=== PATIENT | female | born 1985 | race African-American/Black ===

== ENCOUNTER 2021-11-21 15:41 | Inpatient (IN) | payer SELFPAY ==
[2021-11-21] VITALS (8 sets, daily range): BP systolic 109–121; BP diastolic 71–83; PULSE 59–64; RESP 16–18; TEMP 36.4–36.7; O2SAT 96–100; BMI 27.3
--- NOTE | 2021-11-21 17:35 | ED_ITS ---
HPI - Abdominal Pain General Time Seen by Provider: 17:35 Date Seen: 11/21/21 Chief Complaint: Abdominal Pain Stated Complaint: Right Abdominal Pain Time Seen by Provider: 11/21/21 17:35 Source: patient and RN notes reviewed Mode of arrival: ambulatory Limitations: no limitations History of Present Illness HPI narrative: This patient is a 35-year-old female that started to experience onset of right- sided chest wall pain. She states it hurts with turning, hurts with breathing. She originally reported that this was abdominal pain but she clearly points to her right lower chest wall where she is feeling this. She was on her way to work and thought maybe she just turned wrong. She has noted some increased bowel movements, some of them diarrheal at times recently. She thought maybe she might have C difficile given that she works at [employer]. She has had no cough or cold symptoms, has no shortness of breath. No palpitations. She does not think she is , did take our recent home test that was negative. Denies any trauma to the chest wall. She has never had anything like this before. No fevers or chills. She has never been told that she has sickle cell. Related Data Patient : No Home Medications Medication Instructions Recorded Confirmed No Known Home Medications 11/21/21 11/21/21 Allergies Allergy/AdvReac Type Severity Reaction Status Date / Time oxycodone Allergy Verified 11/21/21 16:03 Review of Systems Status of ROS Reports: 10 or more systems reviewed and unremarkable except as noted in History and below PFSH PFSH Social History Smoking Status: Never smoker Do you use any of these nicotine containing products: None Second hand tobacco smoke exposure: Yes How often do you have a drink containing alcohol: never How often do you have six or more drinks on one occasion: Never AUDIT-C Alcohol total score: 0 Non-prescribed substance use: over the counter (eg: immodium) Non-prescribed substance use details: tylenol service: No Exam Const: Vital Signs, click to edit/add: Vital Signs - 24 hr 11/21/21 16:03 11/21/21 18:38 Temperature 97.5 F L Pulse Rate [Right Pulse Oximeter] 63 59 L Respiratory Rate 18 18 Blood Pressure [Le ft Forearm] 109/83 Blood Pressure [Ri ght Upper Arm] 109/78 Pulse Oximetry 100 99 Documenting provider has reviewed patient's vital signs: yes Common normals: no apparent distress, average body habitus, oriented x3, no limitations, healthy appearing, alert and well nourished General appearance: cooperative, comfortable and well ket HENMT: Common normals: normocephalic, head/scalp atraumatic, hearing grossly normal bilaterally, external ears normal, external nose normal, nasal mucous membranes and turbinates normal, moist oral mucous membranes, oropharynx normal and dentition normal Head and scalp: normocephalic and atraumatic Nose: external nose normal and nasal mucous membranes and turbinates normal External ear: external ears normal Eye: Common normals: PERRL, EOMs intact bilaterally, conjunctivae normal and no scleral icterus Conjunctiva: conjunctiva(e) normal Pupil: PERRL Neck & C-Spine: Common normals: full ROM, no lymphadenopathy, supple, no meningeal signs, no JVD and thyroid normal Thyroid: thyroid normal Chest: Common normals: inspection of chest normal Other: Does complain of pain when I palpate along the lower chest wall and ribs on the right side, no visible rash. Resp: Common normals: normal respiratory effort, no retractions, no use of accessory muscles and clear to auscultation bilaterally (She does complain of pain in the right side with deep breathing) Auscultation: clear to auscultation bilaterally (She does complain of pain in the right side with deep breathing) Cardio: Common normals: no JVD, regular rate, regular rhythm, S1 normal heart sound, S2 normal heart sound, no gallops, no clicks and no murmurs Rate: regular rate Rhythm: regular rhythm Heart sounds: S1 normal and S2 normal GI: Common normals: Normal to inspection, nondistended, normoactive bowel sounds present, soft to palpation, non-tender, no hepatosplenomegaly and no masses Palpation: soft and no hepatosplenomegaly Extremity: Common normals: normal to inspection, full ROM, normal capillary refill, no joint enlargement, no clubbing, cyanosis or edema, no calf tenderness and no pedal edema Neuro: Common normals: oriented x3 Sensorium/orientation: alert Meningeal signs: no meningeal signs Speech: speech normal Gait (neuro): normal gait Psych: Appearance: well kempt Course Course Hospital Course: We will obtain a chest x-ray, EKG in full complement of labs. She will be monitored on pulse oximetry while here. This seems to be consistent with pleurisy and some chest wall tenderness. Cardiac, musculoskeletal, GI much less likely. There is no noted trauma. We will give her dose of Toradol and see if that does help her symptoms. Reevaluation(s) Reevaluation #1: Did review with patient that her troponin is elevated. Did subsequently order an EKG which is not showing any evidence of any pericarditis or ST segment changes indicative of ischemia or infarction. Will be doing the PE protocol. Will subsequently do a followup troponin as well. I am also ordering a COVID. I have no reasonable explanation at this time other than possibly pulmonary embolus with strain, non STEMI, myocarditis. May ultimately need to talk to Cardiology. Time: 19:27 Reevaluation #2: Dr. Tom did kindly do a bedside ultrasound quickly. There does not appear to be a pericardial effusion at this time, normal gross function. We will be contacting Cardiology and the patient is aware. Note we did get a troponin here in the ER that was point of care that was 0.00. I had laboratory run our initial troponin on arrival and they had a repeat value of 0.239 which is centrally consistent with the initial result. We did do dry which I will have lab add in believe it was around 820 and they did get 0.243. Thus I think our point of care is erroneously. Time: 21:53 Consultations Consultation #1: Spoke with Dr. Her moreno from Cardiology at 9:46 p.m.. He agrees that this patient should be admitted overnight, echo tomorrow. He states they sometimes see these patients have parapneumonic or pericardial changes with pneumonia. He would recommend NSAIDs or colchicine. I reviewed with him that I had given her Toradol which he thought was perfect. I have subsequently talked to Dr. Rocha who agrees with management and will be assuming care. He would like Rocephin and oral antibiotics such as azithromycin. I have ordered 2 g IV Rocephin and 500 mg oral azithromycin for her. Time: 21:56 Vital Signs Vital signs: Initial Vital Signs Temperature 97.5 F L 11/21/21 16:03 Temperature Source Temporal Artery Scan 11/21/21 16:03 Pulse Rate 63 11/21/21 16:03 Respiratory Rate 18 11/21/21 16:03 Blood Pressure 109/78 11/21/21 16:03 Blood Pressure Mean 88 11/21/21 16:03 Blood Pressure Position Sitting 11/21/21 16:03 Pulse Oximetry 100 11/21/21 16:03 Oxygen Delivery Method 11/21/21 16:03 Vital Signs Temperature 97.5 F L 11/21/21 16:03 Pulse Rate 63 11/21/21 16:03 Respiratory Rate 18 11/21/21 16:03 Blood Pressure 109/78 11/21/21 16:03 Pulse Oximetry 100 11/21/21 16:03 Temperature 97.5 F L 11/21/21 16:03 Pulse Rate 59 L 11/21/21 18:38 Respiratory Rate 18 11/21/21 18:38 Blood Pressure 109/83 11/21/21 18:38 Pulse Oximetry 99 11/21/21 18:38 MDM - Abdominal Pain Lab Data Attestation: I reviewed the patient's lab results. Labs: Lab Results 11/21/21 11/21/21 11/21/21 Range/Units 17:42 18:20 18:20 WBC 5.80 (4.50-11.00) K/uL RBC 4.87 (4.00-5.20) m/uL Hgb 11.7 L (12.0-16.0) gm/dL Hct 38.0 (33.0-51.0) % MCV 78 L (80-100) fL MCH 24 L (26-34) pg MCHC 31 L (32-36) gm/dL RDW Coeff of Freddy 17.0 H (11.5-15.5) % Plt Count 375 (140-440) K/uL Neut % (Auto) 52.0 (42.0-72.0) % Lymph % (Auto) 39.7 (20-44) % Ashe % (Auto) 6.2 (0.0-11.0) % Eos % (Auto) 1.2 (0.0-7.0) % Baso % (Auto) 0.9 (0.0-3.0) % Neut # (Auto) 3.02 (1.7-7.0) K/uL Lymph # (Auto) 2.30 (0.90-2.90) K/uL Ashe # (Auto) 0.40 (0.00-0.90) K/UL Eos # (Auto) 0.07 (0.00-0.50) K/uL Baso # (Auto) 0.05 (0.00-0.30) K/uL Abs Immat Gran (auto) 0.00 (0.00-0.30) K/uL ESR (2-20) mm/hr Sodium (135-149) mmol/L Potassium (3.6-5.1) mmol/L Chloride (96-114) mmol/L Carbon Dioxide (20-32) mmol/L BUN (5-24) mg/dL Creatinine (0.5-1.5) mg/dL Estimated Creat Clear Estimated GFR ml/min Glucose (60-115) mg/dL Calcium (8.4-10.6) mg/dL Total Bilirubin (0.1-1.5) mg/dL AST (12-35) U/L ALT (4-35) U/L Alkaline Phosphatase (40-150) U/L Troponin I (0.01-0.04) ng/mL C-Reactive Protein (0.5-1.0) mg/dL Total Protein (6.0-8.3) g/dL Albumin (3.3-5.0) g/dL HCG, Qual Negative (Negative) Urine Color Yellow (Yellow) Urine Appearance Cloudy A (Clear) Urine pH 5.5 (5.0-8.5) Ur Specific Chester 1.010 (1.000-1.030) Urine Protein Negative (Negative) Urine Glucose (UA) Negative (Negative) Urine Ketones Negative (Negative) Urine Blood Negative (Negative) Urine Nitrite Negative (Negative) Urine Bilirubin Negative (Negative) Urine Urobilinogen 0.2 (0.2-1.0) Ur Leukocyte Esterase 2+ A (Negative) Urine RBC 0-2 (0-2) Urine WBC 5-10 A (0-5) Ur Squamous Epith Cells Moderate A (None-Few) Urine Bacteria Few A (None) SARS-CoV-2 (PCR) (Negative) POC Troponin I (0.01-0.04) ng/ml 11/21/21 11/21/21 11/21/21 Range/Units 18:20 18:20 19:17 WBC (4.50-11.00) K/uL RBC (4.00-5.20) m/uL Hgb (12.0-16.0) gm/dL Hct (33.0-51.0) % MCV (80-100) fL MCH (26-34) pg MCHC (32-36) gm/dL RDW Coeff of Freddy (11.5-15.5) % Plt Count (140-440) K/uL Neut % (Auto) (42.0-72.0) % Lymph % (Auto) (20-44) % Ashe % (Auto) (0.0-11.0) % Eos % (Auto) (0.0-7.0) % Baso % (Auto) (0.0-3.0) % Neut # (Auto) (1.7-7.0) K/uL Lymph # (Auto) (0.90-2.90) K/uL Ashe # (Auto) (0.00-0.90) K/UL Eos # (Auto) (0.00-0.50) K/uL Baso # (Auto) (0.00-0.30) K/uL Abs Immat Gran (auto) (0.00-0.30) K/uL ESR 11 (2-20) mm/hr Sodium 138 (135-149) mmol/L Potassium 4.0 (3.6-5.1) mmol/L Chloride 104 (96-114) mmol/L Carbon Dioxide 25 (20-32) mmol/L BUN 8 (5-24) mg/dL Creatinine 0.7 (0.5-1.5) mg/dL Estimated Creat Clear 123.61 Estimated GFR 117 ml/min Glucose 101 (60-115) mg/dL Calcium 9.7 (8.4-10.6) mg/dL Total Bilirubin 0.4 (0.1-1.5) mg/dL AST 30 (12-35) U/L ALT 25 (4-35) U/L Alkaline Phosphatase 84 (40-150) U/L Troponin I 0.23 H* (0.01-0.04) ng/mL C-Reactive Protein 0.6 (0.5-1.0) mg/dL Total Protein 8.3 (6.0-8.3) g/dL Albumin 4.7 (3.3-5.0) g/dL HCG, Qual (Negative) Urine Color (Yellow) Urine Appearance (Clear) Urine pH (5.0-8.5) Ur Specific Chester (1.000-1.030) Urine Protein (Negative) Urine Glucose (UA) (Negative) Urine Ketones (Negative) Urine Blood (Negative) Urine Nitrite (Negative) Urine Bilirubin (Negative) Urine Urobilinogen (0.2-1.0) Ur Leukocyte Esterase (Negative) Urine RBC (0-2) Urine WBC (0-5) Ur Squamous Epith Cells (None-Few) Urine Bacteria (None) SARS-CoV-2 (PCR) Negative SARS-CoV-2 (Negative) POC Troponin I (0.01-0.04) ng/ml 11/21/21 11/21/21 Range/Units 20:08 20:08 WBC (4.50-11.00) K/uL RBC (4.00-5.20) m/uL Hgb (12.0-16.0) gm/dL Hct (33.0-51.0) % MCV (80-100) fL MCH (26-34) pg MCHC (32-36) gm/dL RDW Coeff of Freddy (11.5-15.5) % Plt Count (140-440) K/uL Neut % (Auto) (42.0-72.0) % Lymph % (Auto) (20-44) % Ashe % (Auto) (0.0-11.0) % Eos % (Auto) (0.0-7.0) % Baso % (Auto) (0.0-3.0) % Neut # (Auto) (1.7-7.0) K/uL Lymph # (Auto) (0.90-2.90) K/uL Ashe # (Auto) (0.00-0.90) K/UL Eos # (Auto) (0.00-0.50) K/uL Baso # (Auto) (0.00-0.30) K/uL Abs Immat Gran (auto) (0.00-0.30) K/uL ESR (2-20) mm/hr Sodium (135-149) mmol/L Potassium (3.6-5.1) mmol/L Chloride (96-114) mmol/L Carbon Dioxide (20-32) mmol/L BUN (5-24) mg/dL Creatinine (0.5-1.5) mg/dL Estimated Creat Clear Estimated GFR ml/min Glucose (60-115) mg/dL Calcium (8.4-10.6) mg/dL Total Bilirubin (0.1-1.5) mg/dL AST (12-35) U/L ALT (4-35) U/L Alkaline Phosphatase (40-150) U/L Troponin I 0.24 H* (0.01-0.04) ng/mL C-Reactive Protein (0.5-1.0) mg/dL Total Protein (6.0-8.3) g/dL Albumin (3.3-5.0) g/dL HCG, Qual (Negative) Urine Color (Yellow) Urine Appearance (Clear) Urine pH (5.0-8.5) Ur Specific Chester (1.000-1.030) Urine Protein (Negative) Urine Glucose (UA) (Negative) Urine Ketones (Negative) Urine Blood (Negative) Urine Nitrite (Negative) Urine Bilirubin (Negative) Urine Urobilinogen (0.2-1.0) Ur Leukocyte Esterase (Negative) Urine RBC (0-2) Urine WBC (0-5) Ur Squamous Epith Cells (None-Few) Urine Bacteria (None) SARS-CoV-2 (PCR) (Negative) POC Troponin I 0.00 L (0.01-0.04) ng/ml Imaging Data Chest x-ray: My impression: My preliminary review of this portable chest x-ray is without acute cardiopulmonary abnormality, await Radiology over-read. CT scan - chest: Attestation: I have reviewed the pertinent imaging results. Radiologist's impression: Patient: VENANCIO PAYNE Facility:?[facility] Patient ID:?[id number] Site Patient ID:?[id number]. Site :?[id number] Study:?CT Chest Angio W/95CC ISOVUE 370 PE PROTOCOL-11/21/2021 7:56:48 PM Ordering Physician:Alice Zhao Final Report: INDICATION: ELEVATED TROPONIN, RIGHT SIDED CHEST PAIN CT CHEST WITH CONTRAST TECHNIQUE: Multidetector CT imaging was performed through the chest following intravenous contrast administration using 95 mL Isovue 370. Coronal and sagittal reconstructions were generated. COMPARISON: None. FINDINGS: Lungs and airways: Right-sided perihilar bronchial wall thickening, most marked involving the bronchi extending into the right middle lobe and right lower lobe, most likely representing bronchitis. Associated stranding in volume loss in the right middle lobe and right lower lobe consistent with atelectasis, as well as scattered small opacities which could represent pneumonia. Additional minimal small opacities in the right upper lobe and left upper lobe could represent additional pneumonia. Pleura and pleural spaces: No pleural effusions or pneumothorax. Heart and mediastinum: Normal heart size. No significant pericardial effusion. No pathologically enlarged mediastinal lymph nodes. Vascular structures: No filling defects in the pulmonary arterial tree to suggest pulmonary emboli. Normal caliber thoracic aorta. Chest wall and axillae: No mass or axillary lymphadenopathy. Osseous structures: Normal for age. No acute fractures identified. Upper abdomen: Unremarkable. IMPRESSION: 1. Right perihilar bronchial wall thickening, most marked at the right middle lobe and right lower lobe, likely representing bronchitis. Associated mild atelectasis. 2. Small patchy opacities in the right middle lobe and right lower lobe potentially represent pneumonia. Question of additional minimal pneumonia in the right upper lobe and left upper lobe. 3. No pulmonary emboli identified. MEREDITH RAVI MD [employer] Dictated by Camacho Ravi MD @ 11/21/2021 8:28:53 PM Please note that all CT scans at this facility use dose modulation, iterative reconstruction, and/or weight-based dosing when appropriate to reduce radiation dose to as low as reasonably achievable. Dictated by: Camacho Ravi MD @ 11/21/2021 20:41:57 (Electronic Signature) ECG Data Attestation: I personally reviewed and interpreted this ECG as follows: (Sinus rhythm 65 beats per minute with sinus arrhythmia, otherwise normal) ECG interpretation date: 11/21/21 ECG interpretation time: 19:28 Prior ECG tracings: not available for review Critical Care Time Critical Care Time Critical Care Time: No Discharge Plan Discharge Clinical Impression: Pleuritic chest pain, Elevated troponin, Pneumonia Patient Disposition: Admitted As Inpatient Condition: Stable Prescriptions: No Action No Known Home Medications 0RF Follow Up/Referrals: Nic Falcon MD [Primary Care Provider] -
--- NOTE | 2021-11-21 17:41 | CRLHL7_ITS ---
For Patients: As a result of the Century Cures Act, medical imaging exams and procedure reports are released immediately into your electronic medical record. You may view this report before your referring provider. If you have questions, please contact your health care provider. INDICATION: Right pleuritic chest pain TECHNIQUE: Single view chest. FINDINGS: The lungs are clear. The heart, mediastinum and pulmonary vessels are of normal size. There is no evidence of pleural disease. IMPRESSION: Negative chest. Dictated by Dian Diaz MD @ 11/21/2021 6:43:15 PM (Electronically Signed)
[2021-11-21 18:21] LABS: Appearance Urine Cloudy (Clear); Bilirubin Urine Negative (Negative); Blood Urine Negative (Negative); Color Urine Yellow (Yellow); Glucose Urine Negative (Negative); Ketones Urine Negative (Negative); Leukocyte Esterase Urine 2+ (Negative); Nitrite Urine Negative (Negative); Protein Urine Negative (Negative); Urobilinogen Urine 0.2 (0.2-1.0); pH Urine 5.5 (5.0-8.5)
[2021-11-21 18:26] LABS: Basophils Absolute Auto 0.05 K/uL (0.00-0.30); Basophils Percent Auto 0.9 % (0.0-3.0); Eosinophils Absolute Auto 0.07 K/uL (0.00-0.50); Eosinophils Percent Auto 1.2 % (0.0-7.0); Hemoglobin* 11.7 gm/dL (12.0-16.0); Lymphocytes Percent Auto 39.7 % (20-44); Mean Corpuscular HGB Conc 31 gm/dL (32-36); Mean Corpuscular Hemoglobin 24 pg (26-34); Mean Corpuscular Volume 78 fL (80-100); Monocytes Percent Auto 6.2 % (0.0-11.0); Neutrophils Absolute Auto 3.02 K/uL (1.7-7.0); Platelet Count* 375 K/uL (140-440); Red Blood Count 4.87 m/uL (4.00-5.20)
[2021-11-21 18:28] LABS: Slide Review Reflex No
[2021-11-21 18:33] LABS: Bacteria Urine Few; RBC Urine 0-2 (0-2)
[2021-11-21 18:34] LABS: Squamous Epithelial Cell Urine Moderate (None-Few)
[2021-11-21] MEDS: KETOROLAC 15 MG/ML inj IVP (18:35)
[2021-11-21 18:38] LABS: Albumin* 4.7 g/dL (3.3-5.0); Chloride* 104 mmol/L (96-114); Sodium* 138 mmol/L (135-149)
[2021-11-21 18:40] LABS: Creatinine* 0.7 mg/dL (0.5-1.5); Est. Creatinine Clearance* 123.61; Estimated Glomerular Filt Rate 117 ml/min
[2021-11-21 18:41] LABS: Alanine Aminotransferase* 25 U/L (4-35); Alkaline Phosphatase* 84 U/L (40-150); Aspartate Amino Transferase* 30 U/L (12-35); Bilirubin Total* 0.4 mg/dL (0.1-1.5); Blood Urea Nitrogen* 8 mg/dL (5-24); Carbon Dioxide* 25 mmol/L (20-32); Glucose* 101 mg/dL (60-115); Total Protein* 8.3 g/dL (6.0-8.3)
[2021-11-21 18:42] LABS: Calcium* 9.7 mg/dL (8.4-10.6)
[2021-11-21 18:44] LABS: C Reactive Protein* 0.6 mg/dL (0.5-1.0)
[2021-11-21 18:54] LABS: Troponin I* 0.23 ng/mL (0.01-0.04)
[2021-11-21 18:56] LABS: HCG Qualitative Serum* Negative (Negative)
--- NOTE | 2021-11-21 19:03 | CRLHL7_ITS ---
For Patients: As a result of the Cures Act, medical imaging exams and procedure reports are released immediately into your electronic medical record. You may view this report before your referring provider. If you have questions, please contact your health care provider. INDICATION: ELEVATED TROPONIN, RIGHT SIDED CHEST PAIN CT CHEST WITH CONTRAST TECHNIQUE: Multidetector CT imaging was performed through the chest following intravenous contrast administration using 95 mL Isovue 370. Coronal and sagittal reconstructions were generated. COMPARISON: None. FINDINGS: Lungs and airways: Right-sided perihilar bronchial wall thickening, most marked involving the bronchi extending into the right middle lobe and right lower lobe, most likely representing bronchitis. Associated stranding in volume loss in the right middle lobe and right lower lobe consistent with atelectasis, as well as scattered small opacities which could represent pneumonia. Additional minimal small opacities in the right upper lobe and left upper lobe could represent additional pneumonia. Pleura and pleural spaces: No pleural effusions or pneumothorax. Heart and mediastinum: Normal heart size. No significant pericardial effusion. No pathologically enlarged mediastinal lymph nodes. Vascular structures: No filling defects in the pulmonary arterial tree to suggest pulmonary emboli. Normal caliber thoracic aorta. Chest wall and axillae: No mass or axillary lymphadenopathy. Osseous structures: Normal for age. No acute fractures identified. Upper abdomen: Unremarkable. IMPRESSION: 1. Right perihilar bronchial wall thickening, most marked at the right middle lobe and right lower lobe, likely representing bronchitis. Associated mild atelectasis. 2. Small patchy opacities in the right middle lobe and right lower lobe potentially represent pneumonia. Question of additional minimal pneumonia in the right upper lobe and left upper lobe. 3. No pulmonary emboli identified. MEREDITH RAVI MD [employer] [facility] Dictated by Camacho Ravi MD @ 11/21/2021 8:28:53 PM Please note that all CT scans at this facility use dose modulation, iterative reconstruction, and/or weight-based dosing when appropriate to reduce radiation dose to as low as reasonably achievable. Dictated by: Camacho Ravi MD @ 11/21/2021 20:41:57 (Electronically Signed)
[2021-11-21 19:06] LABS: Erythrocyte SedimentationRate* 11 mm/hr (2-20)
[2021-11-21 20:19] LABS: SARS PCR* Negative SARS-CoV-2 (Negative)
[2021-11-21 21:36] LABS: Troponin I* 0.24 ng/mL (0.01-0.04)
[2021-11-21] MEDS: AZITHROMYCIN 250 MG TABLET 500 MG PO (22:25)
[2021-11-21] MEDS: cefTRIAXone 2 GM in 0.9 % SODIUM CHLORIDE Mini-bag 100 ML IVPB (22:26)
--- NOTE | 2021-11-21 22:49 | PM.IMHP1 ---
Hospitalist- H&P: HPI History of Present Illness Date Seen: 11/21/21 Chief complaint: Right Abdominal Pain Narrative: Theodora Hayes is a 35 year old female presents to the emergency room with onset today of right-sided chest pain. She was generally feeling well up until this afternoon when she had onset of right chest pain. She indicates this is in her right lower chest approximately the anterior axillary line, below and lateral to her right breast. Hurts to take a deep breath or cough. Pain became severe enough that she left work to come to the emergency room. She has not had significant cough. No cold symptoms. No shortness of breath. No fever. She reports that she has been more tired than usual for the last 2 weeks. She works at an and works a lot of double shifts. She has generally been healthy without any history of lung or heart disease except she tells me as a child around age 12 she was hospitalized for a problem possibly with her heart. There has been no ongoing problem and no followup for that. She had a positive PPD in 2006. This was at [facility]. She had negative induced sputums, negative bronchoscopy, chest x-ray showing scarring at her right lung base. 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 Follow-up chest x-ray in 2009 showed no change. Review of Systems Narrative: She reports generally doing well except for recent fatigue. She also notes that she has had some constipation and some diarrhea intermittently. No fever, chills, night sweats, weight loss. PFSH PFS Medical History (Updated 11/21/21 @ 23:02 by Josh Rocha MD) Positive PPD, treated Surgical History History of section Family History (Updated 11/21/21 @ 22:57 by Josh Rocha MD) Mother High blood pressure Social History (Updated 11/21/21 @ 22:58 by Josh Rocha MD) Narrative: She lives in [place] with her boyfriend and children ages 9 and 6. She works at the [employer]. She reports she works long hours often working double shifts. She immigrated from [place] when she was 12 years old. Since then she has been living in various locations in the [place] including [facility] an more recently [facility]. Moved to [place] about 4 months ago to be near her mom who lives in [place]. Smoking Status: Never smoker Do you use any of these nicotine containing products: None Second hand tobacco smoke exposure: Yes How often do you have a drink containing alcohol: never How often do you have six or more drinks on one occasion: Never AUDIT-C Alcohol total score: 0 Non-prescribed substance use: over the counter (eg: immodium) Non-prescribed substance use details: tylenol service: No Meds Home Medications and Allergies Home Medications Medication Instructions Recorded Confirmed Type No Known Home Medications 11/21/21 11/21/21 History Allergies Allergy/AdvReac Type Severity Reaction Status Date / Time oxycodone Allergy Verified 11/21/21 16:03 Exam Narrative: Exam Narrative: She is alert and appears in no distress. Eyes are normal. Oropharynx normal. Neck is supple without mass or adenopathy. Respirations are clear to auscultation. She indicates pain with deep breathing. I do not hear pleuritic rub or consolidation. Cardiovascular: S1, S2, regular rate and rhythm. No murmur gallop or rub. Abdomen: Bowel sounds active. Abdomen is soft without tenderness or mass. Extremities with good pulses and no edema. Const: Vital Signs, click to edit/add: Vital Signs - 24 hr 11/21/21 16:03 11/21/21 18:38 Temperature 97.5 F L Pulse Rate [Right Pulse Oximeter] 63 59 L Respiratory Rate 18 18 Blood Pressure [Le ft Forearm] 109/83 Blood Pressure [Ri ght Upper Arm] 109/78 Pulse Oximetry 100 99 Documenting provider has reviewed patient's vital signs: yes Hospitalist - H&P: Result Labs Labs: Short CBC 11/21/21 Range/Units 18:20 WBC 5.80 (4.50-11.00) K/uL Hgb 11.7 L (12.0-16.0) gm/dL Hct 38.0 (33.0-51.0) % Plt Count 375 (140-440) K/uL BMP 11/21/21 18:20 Sodium 138 Potassium 4.0 Chloride 104 Carbon Dioxide 25 BUN 8 Creatinine 0.7 Glucose 101 Calcium 9.7 Cardiac Enzymes 11/21/21 11/21/21 Range/Units 18:20 20:08 Troponin I 0.23 H* 0.24 H* (0.01-0.04) ng/mL Liver Function 11/21/21 Range/Units 18:20 Total Bilirubin 0.4 (0.1-1.5) mg/dL AST 30 (12-35) U/L ALT 25 (4-35) U/L Alkaline Phosphatase 84 (40-150) U/L Albumin 4.7 (3.3-5.0) g/dL Urine 11/21/21 Range/Units 17:42 Urine Color Yellow (Yellow) Urine Appearance Cloudy A (Clear) Urine pH 5.5 (5.0-8.5) Ur Specific [place] 1.010 (1.000-1.030) Urine Protein Negative (Negative) Urine Glucose (UA) Negative (Negative) Imaging CT scan - chest: Radiologist's impression: Right perihilar bronchial wall thickening most marked in the right middle lobe and right lower lobe representing bronchitis. Associated mild atelectasis. Small patchy opacities in the right middle lobe and right lower lobe potentially representing pneumonia. Question of additional minimal pneumonia in the right upper lobe and left upper lobe. No pulmonary emboli. Assessment and Plan Assessment and plan (1) Elevated troponin: Status: Acute Assessment and Plan: Likely related to infectious/inflammatory process in the right chest. equipment monitor phototypesetting, vital sign monitoring, symptom monitoring, trend troponin, echocardiogram. (2) Pneumonia: Status: Acute Assessment and Plan: Treat as community-acquired pneumonia. (3) Pleuritic chest pain: Status: Acute Assessment and Plan: Treat with NSAID for pleurisy. (4) Positive PPD, treated: Problem comment: Positive PPD 2006 [facility]. Had negative induced sputum and negative bronchoscopy. Chest x-ray showed scarring at the right lung base. Treated for 2 months. Repeat chest x-ray 2010 unchanged. Status: Acute Assessment and Plan: Consider comparing chest x-ray from 12-15 [address] to current CT.
--- NOTE | 2021-11-21 23:05 | W.PC.EDHO ---
Primary Language: Preferred Language: Orientation Status: [x] Alert & Oriented [] Slight Confusion [] Known Dx Dementia Transfers By: IND [] Assist of 1 [] Assist of 2 [] Lift Active Medications Discontinued Medications Generic Name Dose Route Start Last Admin Trade Name Nasra PRN Reason Stop Dose Admin Azithromycin 500 mg 11/21/21 21:50 11/21/21 22:25 Azithromycin 250 Mg Tablet PO 11/21/21 21:51 500 mg ONCE ONE Administration Ceftriaxone Sodium 2 gm/ 100 mls @ 200 mls/hr 11/21/21 21:50 11/21/21 22:26 Sodium Chloride IVPB 11/21/21 21:51 200 mls/hr ONCE ONE Administration Ketorolac Tromethamine 15 mg 11/21/21 17:44 11/21/21 18:35 Ketorolac 15 Mg/Ml Inj IVP 11/21/21 17:45 15 mg ONCE ONE Administration Description of Symptoms ED Triage Present Problem sudden onset of right upper abd pain. denies Description nausea, vomiting or diarrhea Female History Hx Last Menstrual Period 11/07/21 Patient No Patient No Patient No Pain Pain Intensity [Right Flank] 8 Pain Intensity 5 Pain Intensity 8 Pain Intensity 8 Pain Scale Used [Right Flank] Numeric (1 - 10) Pain Scale Used Numeric (1 - 10) Pain Scale Used Numeric (1 - 10) Pain Scale Used Numeric (1 - 10) IV Insertion/Site Date of IV Line Insertion [ 11/21/21 Right Antecubital] Oxygen Administration Pulse Oximetry 99 Pulse Oximetry 99 Pulse Oximetry 99 Pulse Oximetry 99 Pulse Oximetry 99 Pulse Oximetry 100 Oxygen Delivery Method Room Air Oxygen Delivery Method Room Air Oxygen Delivery Method Room Air Oxygen Delivery Method Room Air Oxygen Delivery Method Room Air Oxygen Delivery Method Room Air Cardiac Monitoring EKG Method 12 Lead
[2021-11-21] MEDS: IBUPROFEN 400 MG TABLET 600 MG PO (23:53)
[2021-11-21] MEDS: ASPIRIN 81 MG TAB.CHEW 324 MG PO (23:57)
[2021-11-22] VITALS (10 sets, daily range): BP systolic 97–114; BP diastolic 59–81; PULSE 55–82; RESP 16–20; TEMP 36.5–36.8; O2SAT 96–100; BMI 28.3
[2021-11-22] MEDS: IBUPROFEN 400 MG TABLET 600 MG PO ×2 (04:57→12:01)
--- NOTE | 2021-11-22 05:47 | PC.NURSE ---
Admission Note: Pt arrived to floor @ 2300 via wheelchair from ED, A&O x3, ambulating independent with a steady gait, no edema noted. VSS, afebrile, LS clear throughout and noticeably dim in the right base posteriorly. Pt rated pain 7/10 on her right side mid thoracic area just under the rib cage, aggravated by deep breathing. Pain has been controlled with scheduled PO ibuprofen. Pt pleasant and cooperative, tele shows NSR with no ectopy. Repeat troponin draw and echocardiogram is ordered for today.
[2021-11-22 07:29] LABS: Basophils Absolute Auto 0.03 K/uL (0.00-0.30); Basophils Percent Auto 0.5 % (0.0-3.0); Eosinophils Absolute Auto 0.11 K/uL (0.00-0.50); Eosinophils Percent Auto 1.7 % (0.0-7.0); Hematocrit 33.5 % (33.0-51.0); Hemoglobin* 10.5 gm/dL (12.0-16.0); Immature Granulocytes Abs Auto 0.01 K/uL (0.00-0.30); Lymphocytes Absolute Auto 2.82 K/uL (0.90-2.90); Lymphocytes Percent Auto 43.9 % (20-44); Mean Corpuscular HGB Conc 31 gm/dL (32-36); Mean Corpuscular Hemoglobin 24 pg (26-34); Mean Corpuscular Volume 78 fL (80-100); Monocytes Percent Auto 7.6 % (0.0-11.0); Neutrophils Absolute Auto 2.96 K/uL (1.7-7.0); Neutrophils Percent Auto 46.1 % (42.0-72.0); Platelet Count* 346 K/uL (140-440); Red Blood Count 4.31 m/uL (4.00-5.20); White Blood Count* 6.42 K/uL (4.50-11.00)
[2021-11-22 07:42] LABS: Slide Review Reflex No
[2021-11-22 08:07] LABS: Troponin I* 0.29 ng/mL (0.01-0.04)
[2021-11-22] MEDS: ACETAMINOPHEN 325 MG TABLET PO ×2 (09:29→21:36)
[2021-11-22] MEDS: ASPIRIN 81 MG TABLET EC PO (09:29)
--- NOTE | 2021-11-22 10:28 | P.IMPN_ITS ---
Progress Note: A&P Assessment and plan (1) Elevated troponin: Status: Acute Assessment and Plan: Echo pending. Tropes elevated but flat. Treat underlying cause, potentially this community-acquired pneumonia. However this could also represent a sup erimposed pericarditis or cardiomyopathy. EKG this morning is normal sinus rhythm with no obvious ST elevations or depressions. (2) Pneumonia: Status: Acute Assessment and Plan: community-acquired. Right middle and lower lobe. Not hypoxic. On Rocephin and azithromycin. Procalcitonin pending. Labs added on this morning to her troponin check. Legionella and strep pneumo antigen pending. (3) Pleuritic chest pain: Status: Acute Assessment and Plan: Managing with ibuprofen and Tylenol. EKG (4) UTI (urinary tract infection): Status: Acute Assessment and Plan: Waiting on urine culture. Likely covered with IV Rocephin. (5) Positive PPD, treated: Problem details: Positive PPD 2006 [facility]. Had negative induced sputum and negative bronchoscopy. Chest x-ray showed scarring at the right lung base. Treated for 2 months. Repeat chest x-ray 2009 unchanged. Status: Acute Subjective Date Seen: 11/22/21 Interval history: Daily Progress Note - Hospital Medicine Day #: 1 CC: right-sided pleuritic chest pain. Community-acquired pneumonia. Elevated trop. OVERNIGHT UPDATES FROM STAFF & MED, LAB, IMAGING UPDATES patient is the same or some improved. Ibuprofen and Tylenol hip knocked the pleuritic chest pain down to about a 3/4. With deep inspiration she coughs. She reiterates the same history I found in the H& P. She has had fatigue for 2 weeks, some diarrhea. No specific fevers or shortness of breath. There has been no change in the quality of her chest pain and or alleviating factors. I have reviewed the admission chest CT. I have also reviewed antibiotics. It appears she also has a UTI. Culture pending. troponin remains elevated this morning but flat Vitals reviewed. 107/76. Pulse 68. O2 sats 100% on room air. Afebrile. Labs reviewed this morning. CBC reveals no obvious leukocytosis, depressed MCV and elevated RDW. Tropes are 0.2 x 3 checks UA is cloudy, 2+ LE, 5-10 white blood cells. Few bacteria. CT chest reviewed last night: 1. Right perihilar bronchial wall thickening, most marked at the right middle lobe and right lower lobe, likely representing bronchitis. Associated mild atelectasis. 2. Small patchy opacities in the right middle lobe and right lower lobe potentially represent pneumonia. Question of additional minimal pneumonia in the right upper lobe and left upper lobe. 3. No pulmonary emboli identified. Review of Systems: See subjective Cardiac: Similar to presentation, right lower and lateral right chest pain Respiratory: no new dyspnea. GI: No abdominal bloating Objective: Vitals: see above Lungs: Clear. Cardiac: S1S2. Disposition/Potential discharge - Likely to return to previous living situation. Total time is 35 minutes with greater than 50% spent in counseling and coordination of care. Exam Const: Vital Signs, click to edit/add: Vital Signs - 24 hr 11/21/21 16:03 11/21/21 18:38 11/21/21 19:20 Temperature 97.5 F L Pulse Rate Pulse Rate [Right Pulse Oximeter] 63 59 L 60 Respiratory Rate 18 18 16 Blood Pressure [Le ft Arm] Blood Pressure [Le ft Forearm] 109/83 121/82 Blood Pressure [Ri ght Arm] Blood Pressure [Ri ght Upper Arm] 109/78 Pulse Oximetry 100 99 99 11/21/21 20:00 11/21/21 21:00 11/21/21 22:00 Temperature Pulse Rate Pulse Rate [Right Pulse Oximeter] 62 64 60 Respiratory Rate 16 16 16 Blood Pressure [Le ft Arm] Blood Pressure [Le ft Forearm] 115/75 117/76 121/71 Blood Pressure [Ri ght Arm] Blood Pressure [Ri ght Upper Arm] Pulse Oximetry 99 99 99 11/21/21 23:30 11/21/21 23:38 11/22/21 00:01 Temperature 98.0 F 98.0 F Pulse Rate Pulse Rate [Right Pulse Oximeter] 64 64 Respiratory Rate 16 16 Blood Pressure [Le ft Arm] Blood Pressure [Le ft Forearm] Blood Pressure [Ri ght Arm] 114/76 114/76 Blood Pressure [Ri ght Upper Arm] Pulse Oximetry 100 96 96 11/22/21 01:09 11/22/21 03:14 11/22/21 05:02 Temperature 97.8 F Pulse Rate 65 Pulse Rate [Right Pulse Oximeter] 69 74 Respiratory Rate 20 18 Blood Pressure [Le ft Arm] Blood Pressure [Le ft Forearm] Blood Pressure [Ri ght Arm] 98/63 Blood Pressure [Ri ght Upper Arm] Pulse Oximetry 99 99 11/22/21 07:27 11/22/21 07:35 Temperature 98.3 F Pulse Rate 65 Pulse Rate [Right Pulse Oximeter] 68 Respiratory Rate 17 Blood Pressure [Le ft Arm] 107/76 Blood Pressure [Le ft Forearm] Blood Pressure [Ri ght Arm] Blood Pressure [Ri ght Upper Arm] Pulse Oximetry 100 Labs Labs: Laboratory Results - last 24 hr 11/21/21 11/21/21 11/21/21 17:42 18:20 18:20 WBC 5.80 RBC 4.87 Hgb 11.7 L Hct 38.0 MCV 78 L MCH 24 L MCHC 31 L RDW Coeff of Freddy 17.0 H Plt Count 375 Neut % (Auto) 52.0 Lymph % (Auto) 39.7 [place] % (Auto) 6.2 Eos % (Auto) 1.2 Baso % (Auto) 0.9 Neut # (Auto) 3.02 Lymph # (Auto) 2.30 [place] # (Auto) 0.40 Eos # (Auto) 0.07 Baso # (Auto) 0.05 Abs Immat Gran (auto) 0.00 ESR Sodium Potassium Chloride Carbon Dioxide BUN Creatinine Estimated Creat Clear Estimated GFR Glucose Calcium Total Bilirubin AST ALT Alkaline Phosphatase Troponin I C-Reactive Protein Total Protein Albumin HCG, Qual Negative Urine Color Yellow Urine Appearance Cloudy A Urine pH 5.5 Ur Specific [place] 1.010 Urine Protein Negative Urine Glucose (UA) Negative Urine Ketones Negative Urine Blood Negative Urine Nitrite Negative Urine Bilirubin Negative Urine Urobilinogen 0.2 Ur Leukocyte Esterase 2+ A Urine RBC 0-2 Urine WBC 5-10 A Ur Squamous Epith Cells Moderate A Urine Bacteria Few A SARS-CoV-2 (PCR) POC Troponin I 11/21/21 11/21/21 11/21/21 18:20 18:20 19:17 WBC RBC Hgb Hct MCV MCH MCHC RDW Coeff of Freddy Plt Count Neut % (Auto) Lymph % (Auto) [place] % (Auto) Eos % (Auto) Baso % (Auto) Neut # (Auto) Lymph # (Auto) [place] # (Auto) Eos # (Auto) Baso # (Auto) Abs Immat Gran (auto) ESR 11 Sodium 138 Potassium 4.0 Chloride 104 Carbon Dioxide 25 BUN 8 Creatinine 0.7 Estimated Creat Clear 123.61 Estimated GFR 117 Glucose 101 Calcium 9.7 Total Bilirubin 0.4 AST 30 ALT 25 Alkaline Phosphatase 84 Troponin I 0.23 H* C-Reactive Protein 0.6 Total Protein 8.3 Albumin 4.7 HCG, Qual Urine Color Urine Appearance Urine pH Ur Specific [place] Urine Protein Urine Glucose (UA) Urine Ketones Urine Blood Urine Nitrite Urine Bilirubin Urine Urobilinogen Ur Leukocyte Esterase Urine RBC Urine WBC Ur Squamous Epith Cells Urine Bacteria SARS-CoV-2 (PCR) Negative SARS-CoV-2 POC Troponin I 11/21/21 11/21/21 11/22/21 20:08 20:08 07:01 WBC 6.42 RBC 4.31 Hgb 10.5 L Hct 33.5 MCV 78 L MCH 24 L MCHC 31 L RDW Coeff of Freddy 17.0 H Plt Count 346 Neut % (Auto) 46.1 Lymph % (Auto) 43.9 [place] % (Auto) 7.6 Eos % (Auto) 1.7 Baso % (Auto) 0.5 Neut # (Auto) 2.96 Lymph # (Auto) 2.82 [place] # (Auto) 0.50 Eos # (Auto) 0.11 Baso # (Auto) 0.03 Abs Immat Gran (auto) 0.01 ESR Sodium Potassium Chloride Carbon Dioxide BUN Creatinine Estimated Creat Clear Estimated GFR Glucose Calcium Total Bilirubin AST ALT Alkaline Phosphatase Troponin I 0.24 H* C-Reactive Protein Total Protein Albumin HCG, Qual Urine Color Urine Appearance Urine pH Ur Specific [place] Urine Protein Urine Glucose (UA) Urine Ketones Urine Blood Urine Nitrite Urine Bilirubin Urine Urobilinogen Ur Leukocyte Esterase Urine RBC Urine WBC Ur Squamous Epith Cells Urine Bacteria SARS-CoV-2 (PCR) POC Troponin I 0.00 L 11/22/21 07:01 WBC RBC Hgb Hct MCV MCH MCHC RDW Coeff of Freddy Plt Count Neut % (Auto) Lymph % (Auto) [place] % (Auto) Eos % (Auto) Baso % (Auto) Neut # (Auto) Lymph # (Auto) [place] # (Auto) Eos # (Auto) Baso # (Auto) Abs Immat Gran (auto) ESR Sodium Potassium Chloride Carbon Dioxide BUN Creatinine Estimated Creat Clear Estimated GFR Glucose Calcium Total Bilirubin AST ALT Alkaline Phosphatase Troponin I 0.29 H* C-Reactive Protein Total Protein Albumin HCG, Qual Urine Color Urine Appearance Urine pH Ur Specific [place] Urine Protein Urine Glucose (UA) Urine Ketones Urine Blood Urine Nitrite Urine Bilirubin Urine Urobilinogen Ur Leukocyte Esterase Urine RBC Urine WBC Ur Squamous Epith Cells Urine Bacteria SARS-CoV-2 (PCR) POC Troponin I
[2021-11-22 11:59] LABS: Albumin* 3.7 g/dL (3.3-5.0); Chloride* 107 mmol/L (96-114)
[2021-11-22 12:00] LABS: Potassium* 3.8 mmol/L (3.6-5.1); Sodium* 137 mmol/L (135-149)
[2021-11-22 12:02] LABS: Bilirubin Total* 0.3 mg/dL (0.1-1.5); Creatinine* 0.7 mg/dL (0.5-1.5); Est. Creatinine Clearance* 123.61; Estimated Glomerular Filt Rate 117 ml/min
[2021-11-22 12:03] LABS: Alanine Aminotransferase* 20 U/L (4-35); Alkaline Phosphatase* 69 U/L (40-150); Aspartate Amino Transferase* 34 U/L (12-35); Blood Urea Nitrogen* 11 mg/dL (5-24); Carbon Dioxide* 24 mmol/L (20-32); Glucose* 89 mg/dL (60-115); Lipase* 40 U/L (23-300); Total Protein* 6.8 g/dL (6.0-8.3)
[2021-11-22 12:04] LABS: Magnesium* 1.5 mg/dL (1.5-2.6)
[2021-11-22 12:06] LABS: C Reactive Protein* 0.6 mg/dL (0.5-1.0)
[2021-11-22 12:20] LABS: Procalcitonin* 0.05 ng/mL (<0.50)
[2021-11-22 13:08] LABS: HCO3 VBG 26 mmol/L (21-28); PCO2 VBG 37 mmHG (40-50); PO2 VBG 81.5 mmHG (25-47); pH VBG 7.453 (7.32-7.43)
[2021-11-22 13:11] LABS: Lactate* 1.1 mmol/L (0.5-1.9)
[2021-11-22 13:52] LABS: Troponin I* 0.26 ng/mL (0.01-0.04)
[2021-11-22] MEDS: IBUPROFEN 600 MG TABLET PO ×2 (17:46→23:31)
[2021-11-22] MEDS: HYDROmorphone 2 MG TABLET PO ×2 (18:00→23:31)
[2021-11-22] MEDS: BENZOCAINE/MENTHOL 1 EACH LOZENGE MUCOUS MEM ×2 (18:00→21:36)
--- NOTE | 2021-11-22 18:32 | PC.NURSE ---
[id number]: Pt. up independent in room. Very fatigued and napping throughout day. Right abdominal/rib pain rated 4-7/10, not alleviated w/acetaminophen, ibuprofen, or aqua-K pad. PO Dilaudid ordered this evening, given @ 1800 as well as lozenge. At this time pt. mentioned inability to smell or taste her food, as well as new cough today and sore throat. Updated PIPPA MAHONEY test ordered and obtained. When RN entered room to obtain sample, pt informed RN that she just found out her aunt was just diagnosed w/COVID this afternoon. She was with this family member 4 days ago. Test currently pending. ECHO completed today. Significant other at bedside part of the afternoon. Tolerating regular diet.
[2021-11-22 19:07] LABS: SARS PCR* POSITIVE SARS-CoV-2 (Negative)
--- NOTE | 2021-11-22 19:38 | PM.EN ---
Chart Event Note Time Seen by Provider: 19:38 Date Seen: 11/22/21 Chart Event Note: Patient admitted yesterday with right side pleuritic chest pain and elevated troponins. Continuing to have right-sided chest pain. Vitals remain normal. No hypoxia. Patient reported loss of taste and smell. Also reported that her family called to report that they had COVID infection. On admission yesterday her COVID test was negative. Repeat COVID test tonight is positive. Will moved to isolation. Positive COVID test suggests that her elevated troponins may represent myocarditis. Will initiate antiviral treatment with either paxlovid or Remdesivir. No current indication for dexamethasone.
--- NOTE | 2021-11-22 19:42 | PC.NURSE ---
Covid test came back positive. Staff updated.
[2021-11-22 20:21] LABS: C Reactive Protein* 0.5 mg/dL (0.5-1.0)
[2021-11-22 20:31] LABS: Troponin I* 0.26 ng/mL (0.01-0.04)
--- NOTE | 2021-11-22 20:58 | PC.NURSE ---
Critical trop called to , recheck in AM, cancel 4xD orders.
[2021-11-22] MEDS: 0.9 % SODIUM CHLORIDE 250 ml IV (21:12)
[2021-11-22] MEDS: SODIUM CHLORIDE 0.9 % (FLUSH) 10 ML SYRINGE 5 ML IVF (21:13)
[2021-11-22] MEDS: ENOXAPARIN 40 MG/0.4 ML INJ SUBCUT (21:35)
[2021-11-22] MEDS: guaiFENesin 100 MG/ML CUP PO (21:36)
[2021-11-22] MEDS: AZITHROMYCIN 250 MG TABLET PO (22:17)
--- NOTE | 2021-11-22 22:26 | PC.NURSE ---
Addendum entered by Heidi Khan RN 11/22/21 23:05: Addendum: IS teaching done @ bedside, Pt averaged 1000 inspired with good breath control, no cough noted after. Pt tolerated well. RN instructed for Pt to use independently while awake. Original Note: Shift Note 19-23: pt pleasant and cooperative, re-test for Covid came back positive @ 1915, Pt moved to room 285. VSS with slightly low BP, afebrile, persistent dry cough noted with no sputum production reported by Pt. IS teaching will be done by bedside RN. Rib pain continues to be rated at 4/10 with the addition of throat pain. Pt is satisfied with pain medication regimen. Pt started on Remdesivir, infusion 1 complete with no complications. See eMAR for medication administration. Serial troponin lab results continue to show elevated levels, MD aware and will continue to monitor.
[2021-11-22] MEDS: cefTRIAXone 1 GM in 0.9 % SODIUM CHLORIDE Mini-bag 100 ML IVPB (22:41)
[2021-11-23] VITALS (8 sets, daily range): BP systolic 92–113; BP diastolic 62–81; PULSE 66–92; RESP 16; TEMP 36.7–37.3; O2SAT 99–100
[2021-11-23] MEDS: PROCHLORPERAZINE 5 MG/ML VIAL IV (05:02)
--- NOTE | 2021-11-23 05:12 | PC.NURSE ---
Addendum entered by Katherine Naranjo RN 11/23/21 05:45: Approx 5 min after compazine administration Pt became tacky into 130's, put operations officer afloat light, when nurse entered room pt was ripping off gown and tele stating I don't feel good, I need to take a shower Pt diaphoretic and anxious. Encouraged pt to put tele back on and lay in bed and take deep breaths, asked her to describe what she was feeling, stated I don't know, I just don't feel good, I'm hot, monitored HR, encourage deep breaths and symptoms began to subside, after approx 3-5 min HR back to NSR in 70's and pt resting in bed, updated charge nurse, will continue to monitor pt. Original Note: [id number] Pt sleeping on and off during night, O2 at 100% during vitals on RA, denies sob, does have a non-productive cough, afebrile during shift. lung sounds clear all lung lopez, c/o R chest pain, relief with schedules ibuprofen and prn po dilaudid. approx 0400 pt developed nauses with emesis x2, aromatherapy patch initiated and prn compazine given with relief. Tele showing NSR.
[2021-11-23] MEDS: HYDROmorphone 2 MG TABLET PO ×3 (05:32→18:56)
[2021-11-23] MEDS: IBUPROFEN 600 MG TABLET PO ×3 (05:32→23:44)
[2021-11-23 07:34] LABS: HCO3 VBG 26 mmol/L (21-28); PCO2 VBG 44 mmHG (40-50); pH VBG 7.374 (7.32-7.43)
[2021-11-23 07:41] LABS: Basophils Absolute Auto 0.04 K/uL (0.00-0.30); Basophils Percent Auto 0.6 % (0.0-3.0); Eosinophils Absolute Auto 0.07 K/uL (0.00-0.50); Eosinophils Percent Auto 1.1 % (0.0-7.0); Hematocrit 35.1 % (33.0-51.0); Hemoglobin* 10.9 gm/dL (12.0-16.0); Immature Granulocytes Abs Auto 0.01 K/uL (0.00-0.30); Lymphocytes Percent Auto 17.1 % (20-44); Mean Corpuscular HGB Conc 31 gm/dL (32-36); Mean Corpuscular Hemoglobin 24 pg (26-34); Mean Corpuscular Volume 77 fL (80-100); Monocytes Percent Auto 9.2 % (0.0-11.0); Neutrophils Absolute Auto 4.78 K/uL (1.7-7.0); Neutrophils Percent Auto 71.8 % (42.0-72.0); Platelet Count* 321 K/uL (140-440); Red Blood Count 4.54 m/uL (4.00-5.20); White Blood Count* 6.65 K/uL (4.50-11.00)
[2021-11-23 07:45] LABS: Slide Review Reflex No
[2021-11-23 08:00] LABS: Albumin* 3.7 g/dL (3.3-5.0); Chloride* 107 mmol/L (96-114); Sodium* 138 mmol/L (135-149)
[2021-11-23 08:01] LABS: Potassium* 3.9 mmol/L (3.6-5.1)
[2021-11-23 08:03] LABS: Bilirubin Total* 0.2 mg/dL (0.1-1.5); Creatinine* 0.7 mg/dL (0.5-1.5); Est. Creatinine Clearance* 123.61; Estimated Glomerular Filt Rate 117 ml/min
[2021-11-23 08:04] LABS: Alanine Aminotransferase* 22 U/L (4-35); Alkaline Phosphatase* 68 U/L (40-150); Aspartate Amino Transferase* 24 U/L (12-35); Blood Urea Nitrogen* 11 mg/dL (5-24); Calcium* 8.7 mg/dL (8.4-10.6); Carbon Dioxide* 27 mmol/L (20-32); Glucose* 100 mg/dL (60-115); Total Protein* 6.9 g/dL (6.0-8.3)
[2021-11-23 08:07] LABS: C Reactive Protein* 0.7 mg/dL (0.5-1.0)
[2021-11-23 08:18] LABS: Procalcitonin* 0.06 ng/mL (<0.50)
[2021-11-23 08:24] LABS: Troponin I* 0.27 ng/mL (0.01-0.04)
--- NOTE | 2021-11-23 08:24 | PC.NURSE ---
LAB CALLED WITH CRITICAL TROPONIN 0.27. DR. SIMPSON AWARE. NO FURTHER ORDERS. CONTINUE TO MONITOR.
[2021-11-23] MEDS: SODIUM CHLORIDE 0.9 % (FLUSH) 10 ML SYRINGE 5 ML IVF (12:11)
--- NOTE | 2021-11-23 14:38 | PC.NURSE ---
Pt remains on strict covid precautions. She slept through breakfast after lab draw and initial assessment by primary RN. When she awoke around 11:00 am eval completed by Dr. Mora. EKG completed. Adequate I & 0. Encourage PO intake. Please see eMar for pain meds provided during the day shift for right flank pain 4 out of 10. Pt sleeping at this time. Plan for possible d/c on Saturday. Pt sats are 99% on room air. Continuous pulse oximetry not needed per Dr. Mora who would like a spot check done with routine VS. Tele indicates NSR w/o ectopy. Report will be given to oncoming shift RN.
--- NOTE | 2021-11-23 17:46 | PM.IMPN1 ---
Progress Note: A&P Assessment and plan (1) COVID-19: Status: Acute Assessment and Plan: remdesivir for three doses - keeping for remdesivir and inpatient due to elevated trop/myocarditis complication no dex symptom management (2) Myocarditis due to COVID-19 virus: Status: Acute Assessment and Plan: echo reviewed. trop stable. (3) UTI (urinary tract infection): Status: Acute Assessment and Plan: urine culture did not grow single organism. (4) Positive PPD, treated: Problem details: Positive PPD 2006 [facility]. Had negative induced sputum and negative bronchoscopy. Chest x-ray showed scarring at the right lung base. Treated for 2 months. Repeat chest x-ray 2009 unchanged. Status: Acute Subjective Date Seen: 11/23/21 Interval history: Daily Progress Note - Hospital Medicine Day #: 2 Covid Positive PCR 11/22 CC: right-sided pleuritic chest pain. covid +, myocarditis. OVERNIGHT UPDATES FROM STAFF & MED, LAB, IMAGING UPDATES Last night patient found out that her aunt and sister were positive for COVID. In addition she developed a lack of smell and taste with a sore throat. She had already been admitted for pneumonitis of the right middle and lower lobes without hypoxia. She was having some right lower chest pain and elevated troponin. Subsequent tested positive last night for COVID-19. I believe her pneumonia is less likely bacterial a more likely COVID pneumonitis. I think her elevated tropes and chest discomfort are from a myocarditis related to her COVID-19. She was started on Remdesivir last night. No dexamethasone. She remains on room air. Her symptoms are well managed. She did get an echo last night. Results below. Final Impressions: 1. Normal left ventricular size, normal wall thickness, hyperdynamic global systolic function, calculated EF of 75 %. 2. Right ventricular cavity size is normal, global systolic RV function is normal. 3. Normal valve function. CT chest reviewed from admission 1. Right perihilar bronchial wall thickening, most marked at the right middle lobe and right lower lobe, likely representing bronchitis. Associated mild atelectasis. 2. Small patchy opacities in the right middle lobe and right lower lobe potentially represent pneumonia. Question of additional minimal pneumonia in the right upper lobe and left upper lobe. 3. No pulmonary emboli identified. Review of Systems: See subjective HEENT: Sore throat, stuffiness, coughing. Cardiac: Similar to presentation, right lower and lateral right chest pain Respiratory: no new dyspnea. GI: No abdominal bloating Objective: Vitals: see above Lungs: Clear. No wheeze Cardiac: S1S2. No murmurs HEENT erythema to the posterior pharynx, boggy nasal turbinates. Disposition/Potential discharge - Likely to return to previous living situation. Total time is 35 minutes with greater than 50% spent in counseling and coordination of care. Exam Const: Vital Signs, click to edit/add: Vital Signs - 24 hr 11/22/21 21:00 11/22/21 23:00 11/23/21 03:33 Temperature 98.3 F 98.1 F 98.0 F Pulse Rate 70 Pulse Rate [Right Pulse Oximeter] 64 70 69 Respiratory Rate 16 16 16 Blood Pressure [Le ft Arm] 97/73 113/81 Blood Pressure [Ri ght Arm] 110/81 Pulse Oximetry 100 100 100 11/23/21 07:00 11/23/21 08:20 11/23/21 11:00 Temperature 99.1 F 99.1 F 98.3 F Pulse Rate 72 Pulse Rate [Right Pulse Oximeter] 66 77 Respiratory Rate 16 16 Blood Pressure [Le ft Arm] 92/62 99/69 Blood Pressure [Ri ght Arm] Pulse Oximetry 99 99 11/23/21 12:31 11/23/21 12:32 11/23/21 15:00 Temperature 98.3 F 98.3 F 98.0 F Pulse Rate 92 Pulse Rate [Right Pulse Oximeter] 92 Respiratory Rate 16 Blood Pressure [Le ft Arm] 111/78 Blood Pressure [Ri ght Arm] Pulse Oximetry 99 Labs Labs: Laboratory Results - last 24 hr 11/22/21 11/22/21 11/23/21 17:30 18:06 07:27 WBC 6.65 RBC 4.54 Hgb 10.9 L Hct 35.1 MCV 77 L MCH 24 L MCHC 31 L RDW Coeff of Freddy 17.0 H Plt Count 321 Neut % (Auto) 71.8 Lymph % (Auto) 17.[address] [facility] % (Auto) 9.2 Eos % (Auto) 1.1 Baso % (Auto) 0.6 Neut # (Auto) 4.78 Lymph # (Auto) 1.10 [facility] # (Auto) 0.60 Eos # (Auto) 0.07 Baso # (Auto) 0.04 Abs Immat Gran (auto) 0.01 VBG pH VBG pCO2 VBG pO2 VBG HCO3 Sodium Potassium Chloride Carbon Dioxide BUN Creatinine Estimated Creat Clear Estimated GFR Glucose Calcium Total Bilirubin AST ALT Alkaline Phosphatase Troponin I 0.26 H* C-Reactive Protein 0.5 Total Protein Albumin Procalcitonin SARS-CoV-2 (PCR) POSITIVE SARS-CoV-2 A 11/23/21 11/23/21 07:27 07:27 WBC RBC Hgb Hct MCV MCH MCHC RDW Coeff of Freddy Plt Count Neut % (Auto) Lymph % (Auto) [facility] % (Auto) Eos % (Auto) Baso % (Auto) Neut # (Auto) Lymph # (Auto) [facility] # (Auto) Eos # (Auto) Baso # (Auto) Abs Immat Gran (auto) VBG pH 7.374 VBG pCO2 44 VBG pO2 54.0 H VBG HCO3 26 Sodium 138 Potassium 3.9 Chloride 107 Carbon Dioxide 27 BUN 11 Creatinine 0.7 Estimated Creat Clear 123.61 Estimated GFR 117 Glucose 100 Calcium 8.7 Total Bilirubin 0.2 AST 24 ALT 22 Alkaline Phosphatase 68 Troponin I 0.27 H* C-Reactive Protein 0.7 Total Protein 6.9 Albumin 3.7 Procalcitonin 0.06 SARS-CoV-2 (PCR)
[2021-11-23] MEDS: BENZOCAINE/MENTHOL 1 EACH LOZENGE MUCOUS MEM (18:57)
[2021-11-23] MEDS: 0.9 % SODIUM CHLORIDE 250 ml IV (18:58)
[2021-11-23 19:07] LABS: Troponin I* 0.27 ng/mL (0.01-0.04)
[2021-11-23] MEDS: ENOXAPARIN 40 MG/0.4 ML INJ SUBCUT (22:12)
[2021-11-23] MEDS: cefTRIAXone 1 GM in 0.9 % SODIUM CHLORIDE Mini-bag 100 ML IVPB (22:13)
[2021-11-23] MEDS: AZITHROMYCIN 250 MG TABLET PO (22:13)
--- NOTE | 2021-11-23 23:21 | PC.NURSE ---
Dilaudid given PRN for pain with relief. Up to the BR independently. Remdesivir and Rocephin given without any complication. Lozenge given for sore throat. Pt using incentive spirometer - up to 1,500 - coughing with treatment.
[2021-11-23] MEDS: ACETAMINOPHEN 325 MG TABLET 975 MG PO (23:44)
[2021-11-24] VITALS (11 sets, daily range): BP systolic 87–111; BP diastolic 52–81; PULSE 61–90; RESP 16; TEMP 36.6–37.1; O2SAT 94–99
--- NOTE | 2021-11-24 05:07 | PC.NURSE ---
Addendum entered by Jayden Smallwood RN 11/24/21 06:31: BPs 109/76 and 88/63 Addendum entered by Jayden Smallwood RN 11/24/21 06:30: 2 emeses after some coughing gave Robitussin and Zokriss ODT Original Note: VSS RA. Nadya Ibuprofen and Tylenol given. C/o pain w/dry cough. Tele NSR. Denied nausea at 0400 and had some ice cream and courtney bronson. Up ad jose maria in room tolerating diet and ind w/cares.
[2021-11-24] MEDS: guaiFENesin 100 MG/ML CUP PO (06:11)
[2021-11-24] MEDS: ONDANSETRON ODT 4 MG TAB PO (06:12)
[2021-11-24] MEDS: IBUPROFEN 600 MG TABLET PO ×3 (06:37→22:02)
[2021-11-24] MEDS: ACETAMINOPHEN 325 MG TABLET 975 MG PO ×3 (06:38→22:01)
[2021-11-24 08:00] LABS: HCO3 VBG 28 mmol/L (21-28); PCO2 VBG 48 mmHG (40-50); PO2 VBG 39.6 mmHG (25-47); pH VBG 7.372 (7.32-7.43)
[2021-11-24 08:40] LABS: Mean Corpuscular HGB Conc 31 gm/dL (32-36); Mean Corpuscular Hemoglobin 24 pg (26-34); Mean Corpuscular Volume 77 fL (80-100); Platelet Count* 314 K/uL (140-440); Red Blood Count 4.56 m/uL (4.00-5.20); White Blood Count* 4.65 K/uL (4.50-11.00)
[2021-11-24 08:43] LABS: Slide Review Reflex No
[2021-11-24] MEDS: SODIUM CHLORIDE 0.9 % (FLUSH) 10 ML SYRINGE 5 ML IVF ×2 (09:57→22:01)
--- NOTE | 2021-11-24 17:19 | P.IMPN_ITS ---
Progress Note: A&P Assessment and plan (1) COVID-19: Status: Acute Assessment and Plan: Status post 3 doses of Remdesivir. Not hypoxic. Notably myocarditis and transaminitis (2) Myocarditis due to COVID-19 virus: Status: Acute Assessment and Plan: Troponin has returned normal. Echo was normal. BNP is elevated but had not been previously checked peer her pain is improved that was in her right chest wall. (3) Transaminitis: Status: Acute Assessment and Plan: Likely from either the acute illness, combination of 3 IV medications to include azithromycin, Rocephin, Remdesivir. I held all 3 of those as she has completed the doses. Will recheck her labs in the morning. (4) Positive PPD, treated: Problem details: Positive PPD 2006 [facility]. Had negative induced sputum and negative bronchoscopy. Chest x-ray showed scarring at the right lung base. Treated for 2 months. Repeat chest x-ray 2009 unchanged. Status: Acute Subjective Date Seen: 11/24/21 Interval history: Daily Progress Note - Hospital Medicine Day #: 3 Covid Positive PCR 11/22 CC: right-sided pleuritic chest pain. covid +, myocarditis. OVERNIGHT UPDATES FROM STAFF & MED, LAB, IMAGING UPDATES pt had emesis induced from coughing overnight. still having some chest wall pain. 101/60 Pulse 83 Respirations 16 Afebrile O2 sats 95% on room air CBC reflects her chronic anemia Low MCV, elevated RDW Mild hyponatremia Troponin has returned to normal i.e. negative GGT is elevated. Liver enzymes are elevated. ProBNP is elevated to 1500 All imaging and echo have been reviewed Review of Systems: See subjective HEENT: Sore throat, stuffiness, coughing. Cardiac: Similar to presentation, right lower and lateral right chest pain Respiratory: no new dyspnea. GI: No abdominal bloating Objective: Vitals: see above Lungs: Clear. No wheeze Cardiac: S1S2. No murmurs HEENT erythema to the posterior pharynx, boggy nasal turbinates. Disposition/Potential discharge - Likely to return to previous living situation. Total time is 35 minutes with greater than 50% spent in counseling and coordination of care. Exam Const: Vital Signs, click to edit/add: Vital Signs - 24 hr 11/23/21 19:00 11/24/21 00:56 11/24/21 01:02 Temperature 98.8 F 98.6 F Pulse Rate 85 Pulse Rate [Right Pulse Oximeter] 87 75 Respiratory Rate 16 16 Blood Pressure [Le ft Arm] 108/72 109/76 Pulse Oximetry 100 95 11/24/21 04:13 11/24/21 07:09 11/24/21 08:00 Temperature 98.5 F Pulse Rate 61 Pulse Rate [Right Pulse Oximeter] 74 68 Respiratory Rate 16 16 Blood Pressure [Le ft Arm] 88/63 L Pulse Oximetry 94 11/24/21 08:08 11/24/21 11:29 11/24/21 15:05 Temperature 98.3 F 97.9 F Pulse Rate Pulse Rate [Right Pulse Oximeter] 68 90 83 Respiratory Rate 16 16 16 Blood Pressure [Le ft Arm] 87/52 L 111/81 101/68 Pulse Oximetry 99 96 95 11/24/21 15:15 Temperature Pulse Rate Pulse Rate [Right Pulse Oximeter] 83 Respiratory Rate 16 Blood Pressure [Le ft Arm] Pulse Oximetry Labs Labs: Laboratory Results - last 24 hr 11/23/21 11/24/21 11/24/21 18:15 07:18 07:18 WBC 4.65 RBC 4.56 Hgb 11.0 L Hct 35.0 MCV 77 L MCH 24 L MCHC 31 L Plt Count 314 VBG pH VBG pCO2 VBG pO2 VBG HCO3 Sodium 132 L Potassium 4.2 Chloride 105 Carbon Dioxide 22 BUN 16 Creatinine 0.5 Estimated Creat Clear 173.06 Estimated GFR 127 Glucose 119 H Calcium 8.4 Magnesium 1.6 Total Bilirubin 0.4 GGT 211 H AST 61 H ALT 132 H Alkaline Phosphatase 175 H Troponin I 0.27 H* < 0.01 L NT-Pro-B Natriuret Pep 1500 H Total Protein 5.5 L Albumin 3.1 L 11/24/21 07:18 WBC RBC Hgb Hct MCV MCH MCHC Plt Count VBG pH 7.372 VBG pCO2 48 VBG pO2 39.6 VBG HCO3 28 Sodium Potassium Chloride Carbon Dioxide BUN Creatinine Estimated Creat Clear Estimated GFR Glucose Calcium Magnesium Total Bilirubin GGT AST ALT Alkaline Phosphatase Troponin I NT-Pro-B Natriuret Pep Total Protein Albumin
--- NOTE | 2021-11-24 18:54 | PC.NURSE ---
End of shift-- Very pleasant and cooperative, alert and oriented patient. She slept most of the day as she works nights and that is her baseline. Pt hypotensive this morning with B/P 87/52 and MD was notified. Improved without intervention by 11am. Other VS all WNL and pt is afebrile. SPO2 maintained >90% on RA. Pain appears well managed with scheduled Tylenol and Motrin only. Telemetry showed NSR and was dc'd by MD this morning. LS CTA. BS+x4 and pt denied nausea today. She ate a regular diet without difficulty. Voided adequate amounts of clear, yellow urine. She was up in room independently and tolerated it well. Report to oncoming shift.
[2021-11-24] MEDS: ENOXAPARIN 40 MG/0.4 ML INJ SUBCUT (22:00)
[2021-11-24] MEDS: AZITHROMYCIN 250 MG TABLET PO (22:02)
[2021-11-24] MEDS: cefTRIAXone 1 GM in 0.9 % SODIUM CHLORIDE Mini-bag 100 ML IVPB (22:03)
[2021-11-25 03:00] VITALS: BP 104/80; PULSE 70; RESP 16; TEMP 36.3; O2SAT 99
--- NOTE | 2021-11-25 06:20 | PC.NURSE ---
Shift note: No c/o nausea, pt rates intercostal pain 5-6/10, scheduled meds administered with no change in pain, pt takes cold sips of fluids for relief. Pt is independent in the room, no additional concerns noted by RN or reported by pt
[2021-11-25 07:00] VITALS: BP 112/73; PULSE 78; RESP 20; TEMP 36.6; O2SAT 100
[2021-11-25 07:22] LABS: Lactate* 0.5 mmol/L (0.5-1.9)
[2021-11-25 07:27] LABS: Hematocrit 35.4 % (33.0-51.0); Hemoglobin* 10.9 gm/dL (12.0-16.0); Mean Corpuscular HGB Conc 31 gm/dL (32-36); Mean Corpuscular Hemoglobin 24 pg (26-34); Mean Corpuscular Volume 77 fL (80-100); Platelet Count* 312 K/uL (140-440); White Blood Count* 5.15 K/uL (4.50-11.00)
[2021-11-25 07:35] LABS: Slide Review Reflex No
[2021-11-25 07:55] LABS: Prothrombin Time 15.7 Seconds
[2021-11-25 07:59] LABS: Chloride* 103 mmol/L (96-114); Sodium* 137 mmol/L (135-149)
[2021-11-25 08:00] LABS: Albumin* 3.9 g/dL (3.3-5.0); Potassium* 3.9 mmol/L (3.6-5.1)
[2021-11-25 08:02] LABS: Creatinine* 0.7 mg/dL (0.5-1.5); Est. Creatinine Clearance* 123.61; Estimated Glomerular Filt Rate 117 ml/min
[2021-11-25 08:03] LABS: Alanine Aminotransferase* 25 U/L (4-35); Alkaline Phosphatase* 64 U/L (40-150); Aspartate Amino Transferase* 29 U/L (12-35); Blood Urea Nitrogen* 17 mg/dL (5-24); Calcium* 8.9 mg/dL (8.4-10.6); Carbon Dioxide* 26 mmol/L (20-32); Gamma Glutamyl Transpeptidase* 35 U/L (8-55); Glucose* 102 mg/dL (60-115); Total Protein* 7.1 g/dL (6.0-8.3)
[2021-11-25 08:06] LABS: C Reactive Protein* 1.6 mg/dL (0.5-1.0)
[2021-11-25 08:07] LABS: Bilirubin Total* < 0.1 mg/dL (0.1-1.5)
[2021-11-25 08:08] LABS: NT Pro B Type NatriureticPept* 34 PG/mL (0-125)
[2021-11-25 08:13] LABS: Troponin I* 0.27 ng/mL (0.01-0.04)
[2021-11-25] MEDS: ACETAMINOPHEN 325 MG TABLET 975 MG PO ×3 (08:30→23:05)
[2021-11-25] MEDS: IBUPROFEN 600 MG TABLET PO ×2 (08:31→16:36)
[2021-11-25] MEDS: SODIUM CHLORIDE 0.9 % (FLUSH) 10 ML SYRINGE 5 ML IVF ×2 (08:34→21:22)
[2021-11-25 08:46] LABS: Albumin* 3.9 g/dL (3.3-5.0); Aspartate Amino Transferase* 30 U/L (12-35); Bilirubin Total* 0.1 mg/dL (0.1-1.5); Blood Urea Nitrogen* 10 mg/dL (5-24); Calcium* 9.2 mg/dL (8.4-10.6); Carbon Dioxide* 27 mmol/L (20-32); Chloride* 105 mmol/L (96-114); Creatinine* 0.6 mg/dL (0.5-1.5); Est. Creatinine Clearance* 144.21; Estimated Glomerular Filt Rate 121 ml/min; Glucose* 93 mg/dL (60-115); Potassium* 4.1 mmol/L (3.6-5.1); Sodium* 137 mmol/L (135-149)
[2021-11-25 08:47] LABS: Alanine Aminotransferase* 22 U/L (4-35); Alkaline Phosphatase* 69 U/L (40-150); Gamma Glutamyl Transpeptidase* 38 U/L (8-55); Magnesium* 1.5 mg/dL (1.5-2.6)
[2021-11-25 08:48] LABS: NT Pro B Type NatriureticPept* 53 PG/mL (0-125); Troponin I* 0.28 ng/mL (0.01-0.04)
[2021-11-25 11:00] VITALS: BP 102/63; PULSE 73; RESP 24; TEMP 37.6; O2SAT 98
[2021-11-25] MEDS: ONDANSETRON ODT 4 MG TAB PO (12:32)
[2021-11-25 15:00] VITALS: BP 100/64; PULSE 73; RESP 20; TEMP 37.3; O2SAT 99
--- NOTE | 2021-11-25 16:32 | PM.IMPN1 ---
Progress Note: A&P Assessment and plan (1) COVID-19: Status: Acute Assessment and Plan: Subjectively improving. Still has taste alteration. (2) Myocarditis due to COVID-19 virus: Status: Acute Assessment and Plan: Denies chest heaviness, pressure, tightness, or pain. Laboratory studies are stable. (3) Transaminitis: Status: Acute Assessment and Plan: Most likely elevated due to COVID-19 myocarditis. Improving. (4) Positive PPD, treated: Problem details: Positive PPD 2006 [facility]. Had negative induced sputum and negative bronchoscopy. Chest x-ray showed scarring at the right lung base. Treated for 2 months. Repeat chest x-ray 2010 unchanged. Status: Acute Assessment and Plan: Likely not related to current presentation. Plan Reviewed above with patient. Answered her questions. She is agreeable. Time Spent With Patient Total time spent: 30 minutes. Subjective Time Seen by Provider: 10:30 Date Seen: 11/25/21 Interval history: Improving. Denies dyspnea at rest or with exertion. Pleuritic chest pain much improved. Has sense of bilateral ear discomfort. Acknowledges rhinitis. Tolerating increased movements and exertional efforts in the room. Appetite slowly improving. Food still does not taste as it once did. Exam Narrative: Exam Narrative: Awake, alert, oriented to self, place, time, situation. Mood and affect are congruent. Lungs entirely clear to auscultation without wheezing, rhonchi, or rales. Chest wall excursions are full. No CVA tenderness. Heart tones with regular rhythm, normal S1-S2, no murmur, gallop, or rub. Abdomen with active bowel sounds, soft, nontender. No CVA tenderness. Extremities without edema. Independent transfer, station, and gait. Cranial nerves 3-12 grossly intact. Small effusion behind both tympanic membranes. Oropharynx benign. Const: Vital Signs, click to edit/add: Vital Signs - 24 hr 11/24/21 19:00 11/24/21 23:00 11/25/21 03:00 Temperature 98.7 F 97.4 F L Pulse Rate [Right Pulse Oximeter] 77 74 70 Respiratory Rate 16 16 16 Blood Pressure [Le ft Arm] 111/70 104/80 Pulse Oximetry 98 99 11/25/21 07:00 11/25/21 11:00 11/25/21 15:00 Temperature 98 F 99.7 F H 99.1 F Pulse Rate [Right Pulse Oximeter] 78 73 73 Respiratory Rate 20 24 20 Blood Pressure [Le ft Arm] 112/73 102/63 100/64 Pulse Oximetry 100 98 99 Documenting provider has reviewed patient's vital signs: yes Labs Labs: Laboratory Results - last 24 hr 11/24/21 11/24/21 11/25/21 07:18 07:18 07:09 WBC 5.15 RBC 4.60 Hgb 10.9 L Hct 35.4 MCV 77 L MCH 24 L MCHC 31 L Plt Count 312 INR Sodium Cancelled 137 Potassium Cancelled 4.1 Chloride Cancelled 105 Carbon Dioxide Cancelled 27 BUN Cancelled 10 Creatinine Cancelled 0.6 Estimated Creat Clear Cancelled 144.21 Estimated GFR Cancelled 121 Glucose Cancelled 93 Lactate Calcium Cancelled 9.2 Magnesium Cancelled 1.5 Total Bilirubin Cancelled 0.1 GGT Cancelled 38 AST Cancelled 30 ALT Cancelled 22 Alkaline Phosphatase Cancelled 69 Troponin I Cancelled 0.28 H* C-Reactive Protein NT-Pro-B Natriuret Pep Cancelled 53 Total Protein Cancelled 7.0 Albumin Cancelled 3.9 11/25/21 11/25/21 11/25/21 07:09 07:09 07:09 WBC RBC Hgb Hct MCV MCH MCHC Plt Count INR 1.20 H Sodium 137 Potassium 3.9 Chloride 103 Carbon Dioxide 26 BUN 17 Creatinine 0.7 Estimated Creat Clear 123.61 Estimated GFR 117 Glucose 102 Lactate 0.5 Calcium 8.9 Magnesium Total Bilirubin < 0.1 L GGT 35 AST 29 ALT 25 Alkaline Phosphatase 64 Troponin I 0.27 H* C-Reactive Protein 1.6 H NT-Pro-B Natriuret Pep 34 Total Protein 7.1 Albumin 3.9
--- NOTE | 2021-11-25 18:33 | PC.NURSE ---
End of Shift: Patient pleasant and cooperative. Patient vitally stable, lungs clear, BS WNL, IV SL and intact. Patient has rated chest and throat pain from coughing at most 5/10, scheduled Tylenol and ibuprofen given for relief. Patient is independent in room. Patient tolerating regular diet eat all of her meal. Patient did request zophran for nausea. Patient urinating and can not recall having a BM today. Patient reported ear pain, MD assess ears, patient does have fluid in ears, and MD recommended Valsalva maneuver for relief. Patient otherwise napped majority of day.
[2021-11-25 21:19] VITALS: BP 105/68; PULSE 73; RESP 20; TEMP 36.8; O2SAT 99
[2021-11-25] MEDS: ENOXAPARIN 40 MG/0.4 ML INJ SUBCUT (21:21)
[2021-11-25] MEDS: cefTRIAXone 1 GM in 0.9 % SODIUM CHLORIDE Mini-bag 100 ML IVPB (23:03)
[2021-11-25] MEDS: 0.9 % SODIUM CHLORIDE 250 ml IV (23:03)
[2021-11-25] MEDS: AZITHROMYCIN 250 MG TABLET PO (23:07)
[2021-11-25 23:23] VITALS: BP 105/64; PULSE 73; RESP 20; TEMP 36.8; O2SAT 99
[2021-11-26 00:14] VITALS: PULSE 73; RESP 20
[2021-11-26 04:46] VITALS: BP 106/71; PULSE 73; RESP 20; TEMP 36.8; O2SAT 100
[2021-11-26] MEDS: IBUPROFEN 600 MG TABLET PO (04:58)
--- NOTE | 2021-11-26 06:18 | PC.NURSE ---
Shift note: The pt has been pleasant and cooperative. She has been denying chest pain and other distress. She reported minor chest discomfort and headache-improved with scheduled pain medication. Spo2 has been in the upper 90s in RA. She has been resting well without any distress
[2021-11-26 07:00] VITALS: BP 104/78; PULSE 69; RESP 18; TEMP 36.6; O2SAT 99
[2021-11-26] MEDS: ACETAMINOPHEN 325 MG TABLET 975 MG PO (07:56)
[2021-11-26 10:30] VITALS: TEMP 36.6
[2021-11-26] MEDS: SODIUM CHLORIDE 0.9 % (FLUSH) 10 ML SYRINGE 5 ML IVF (10:31)
--- NOTE | 2021-11-26 16:11 | PM.DS1 ---
DS: Providers Provider Time Seen by Provider: 12:00 Date Seen: 11/26/21 Date of admission: 11/21/21 22:12 Primary care physician: Nic Falcon MD Admitting Clinician: Josh Rocha MD Attending Physician on discharge: Jerome Salvador MD Date of Discharge: 11/26/21 DS: Diagnosis Discharge Diagnosis (1) Pleuritic chest pain: Status: Acute (2) Pneumonia: Status: Acute (3) COVID-19: Status: Acute (4) Elevated troponin: Status: Acute (5) Myocarditis due to COVID-19 virus: Status: Acute (6) Transaminitis: Status: Acute (7) UTI (urinary tract infection): Status: Acute (8) Microcytic anemia: Status: Acute (9) Positive PPD, treated: Status: Acute Problem details: Positive PPD 2006 [facility]. Had negative induced sputum and negative bronchoscopy. Chest x-ray showed scarring at the right lung base. Treated for 2 months. Repeat chest x-ray 2009 unchanged. DS: Summary Hospital Course Hospital Course: Theodora Hayes is a 35 year old female presents to the emergency room with onset today of right-sided chest pain.? She was generally feeling well up until this afternoon when she had onset of right chest pain.? She indicates this is in her right lower chest approximately the anterior axillary line, below and lateral to her right breast.? Hurts to take a deep breath or cough.? Pain became severe enough that she left work to come to the emergency room.? She has not had significant cough.? No cold symptoms.? No shortness of breath.? No fever.? She reports that she has been more tired than usual for the last 2 weeks.? She works at an [employer] and works a lot of double shifts. She has generally been healthy without any history of lung or heart disease except she tells me as a child around age 12 she was hospitalized for a problem possibly with her heart.? There has been no ongoing problem and no followup for that.? She had a positive PPD in 2006.? This was at [facility].? She had negative induced sputums, negative bronchoscopy, chest x-ray showing scarring at her right lung base.? 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 Follow-up chest x-ray in [address] scan of chest demonstrated no pulmonary embolism. CT scan did suggest pulmonary infiltrate consistent with community-acquired pneumonia. Patient was not hypoxemic. Treated with IV ceftriaxone and azithromycin while in hospital. Pain treated with scheduled acetaminophen and ibuprofen. Reportedly pain totally resolved at time of discharge. SARS-CoV-2 PCR negative on admission date. On 2nd day of hospital patient was retested and found to be positive. Patient had altered taste sensation and awareness on 2nd hospital day. Patient treated with 3 days of IV remdesivir while in hospital. Symptoms improve substantially while in hospital. Noteworthy is that in retrospect patient's troponin I's were mildly elevated at 0.28 on presentation. Troponin I levels remained steady throughout her hospital stay. Electrocardiogram and telemetry were unremarkable. Echocardiogram similarly normal. It was a presumed that patient has mild COVID myocarditis. Recommended that she have follow-up in regard to this. Status at Discharge Cognitive/behavioral status at discharge: At baseline. Functional status at discharge: independent ambulation Overall status at discharge: patient is progressing back to baseline Time Spent with Patient Time attestation: Total time spent providing and/or coordinating discharge services: Time spent: Greater than 30 minutes Exam Narrative: Exam Narrative: Lungs remain clear to auscultation. Heart tones with regular rhythm, normal S1-S2. No murmur, gallop, or rub. Abdomen with active bowel sounds, soft, nontender. Extremities without edema. Independent transfer, station, and gait. Const: Vital Signs, click to edit/add: Vital Signs - 24 hr 11/25/21 21:19 11/25/21 23:23 11/26/21 00:14 Temperature 98.3 F 98.2 F Pulse Rate [Left A pical] Pulse Rate [Right Pulse Oximeter] 73 73 73 Respiratory Rate 20 20 20 Blood Pressure [Le ft Arm] 105/68 105/64 Pulse Oximetry 99 99 11/26/21 04:46 11/26/21 07:00 11/26/21 10:30 Temperature 98.3 F 97.8 F 97.8 F Pulse Rate [Left A pical] 69 Pulse Rate [Right Pulse Oximeter] 73 Respiratory Rate 20 18 Blood Pressure [Le ft Arm] 106/71 104/78 Pulse Oximetry 100 99 Documenting provider has reviewed patient's vital signs: yes DS: Data Imaging CT scan - chest: Attestation: I have reviewed the pertinent imaging results. Radiologist's impression: 1. Right perihilar bronchial wall thickening, most marked at the right middle lobe and right lower lobe, likely representing bronchitis. Associated mild atelectasis. 2. Small patchy opacities in the right middle lobe and right lower lobe potentially represent pneumonia. Question of additional minimal pneumonia in the right upper lobe and left upper lobe. 3. No pulmonary emboli identified. Echo: Radiologist's impression: Normal echocardiogram. EF 75%. Discharge Plan Discharge Disposition: Home, Self-Care Date of Admission: 11/21/21 22:12 Attending Provider on Discharge: Jerome Salvador Primary Care Provider: Nic Falcon Condition: Stable Anticipated Discharge Date/Time: 11/26/21 14:00 Discharge Medications: New acetaminophen 325 mg Tablet 975 mg PO Q8H 7 Days Qty: 63 0RF guaifenesin 100 mg/5 mL Liquid 100 - 200 mg PO Q4H PRN (Reason: Cough) 7 Days Qty: 200 0RF ibuprofen 600 mg Tablet 600 mg PO Q8H PRN (Reason: Chest Pain) 7 Days Qty: 21 0RF amoxicillin 500 mg capsule 500 mg PO TID Qty: 15 0RF Discharge Orders: Discharge Order (Routine); Ordered 11/26/21 Ordered By: Jerome Salvador Patient Education: Acetaminophen (By mouth), Ibuprofen (By mouth), Guaifenesin (By mouth), Amoxicillin (By mouth), COVID-19 (Coronavirus Disease 2019) (GEN), COVID-19: Slow the Coronavirus Spread (GEN), COVID-19 Vaccine (GEN) Activity Restrictions/Additional Instructions: 1. Use N-95 mask around others through the end of the day on Saturday; 2. Follow-up with primary care physician in next 5-10 days regarding COVID myocarditis, with pre-visit Troponin I level, CBC; 3. Obtain 1st COVID booster as soon as you qualify to do so, in next 1-2 weeks if possible; 4. Obtain 2nd generation COVID vaccine this coming fall when available; 5. COVID prevention precautions in your home and family. Activity Level: No Restrictions and Activity as Tolerated Discharge Diet: Regular Follow Up Appointments: Nic Falcon MD [Primary Care Provider] - None Paulie Castro MD [Staff Physician] - 01/01/22 11:30 am (Arrive 15 minutes early to register and let them know you need blood work done) Forms: [employer]th Info Instructions
--- NOTE | 2021-11-26 16:55 | PC.NURSE ---
Discharge Note: Pt friendly and cooperative. Moves independently throughout her room without difficulty. VS WNL and LS COA. Afebrile. C/o 6/10 CP this morning, Tylenol and Ibuprefen given PRN and MD updated. Good appetite and BM this afternoon. Deep breathing induces coughing spell, but pt otherwise denies coughing/congestion or respiratory symptoms. Shower this afternoon independently. IV dc'd, catheter intact. Pt was discharged to home independently at 1443. She verbalized understanding of discharge instructions and follow up appointments.
== END 2021-11-26 17:05 | disposition home or self-care (01) | DRG 177 ==
LOC: ED 21:58 → MEDSURG 23:21
PROVIDERS: Family Medicine; Admitting Provider Family Medicine; Emergency Provider Family Medicine; PCP Family Medicine; Visit Provider Family Medicine
DX: U07.1 COVID-19 (principal); J12.82 Pneumonia due to coronavirus disease 2019; I40.9 Acute myocarditis, unspecified; N39.0 Urinary tract infection, site not specified; R07.81 Pleurodynia; R74.01 Elevation of levels of liver transaminase levels; D50.9 Iron deficiency anemia, unspecified
CPT/HCPCS: 36415; 71045; 71260; 80053; 81001; 82803; 82977; 83605; 83690; 83735; 83880; 84145; 84443; 84484; 84703; 85025; 85027; 85610; 85651; 86140; 87086; 87186; 87635; 93005; 93306; 99284; 99285; G0378; A9270; J0696; J0780; J1650; J1885; J7050; Q9967